=== PATIENT | female | born 1980 | race Caucasian/White ===

== ENCOUNTER 2017-01-24 09:11 | Inpatient (IN) | payer BC ==
--- NOTE | 2017-01-20 15:50 | PROGRESS NOTE:Antepartum ---
Assessment and Plan - Date of Encounter Date of Encounter: 01/24/17 11:40 AM (1) Supervision of elderly multigravida in third trimester (>=35 years old at time of delivery) Status: Acute Assessment and plan: Term at 39 1/7 with GBS + and lives 4 hours from hospital. Plan AROM induction since cervix is already 4 cm. Expect labor to follow and will add Pitocin prn. Current Visit: Yes (2) GBS (group B Streptococcus carrier), +RV culture, currently Status: Acute Assessment and plan: PCN Allergic, Clinda for prophylaxis, Clindamcyin started 11:45. Current Visit: Yes (3) Residence remote from hospital or health care facility Status: Acute Current Visit: Yes - Time Spent With Patient Total time spent with greater than 50% in coordination of care (as documented) at patient's floor/unit and/or counseling patient: INSURANCE COORDINATOR: Antepartum PN Subj - Subjective Interval history: 36-year-old with 3 previous spontaneous miscarriages all the first trimester and certain LMP of April 25, 2016 and EDC of January 30, 2017. Dates are confirmed by an early first trimester ultrasound as well as 20 week ultrasound. She is 39 1/7 weeks. She is group B strep positive. This was complicated by recurrent spontaneous miscarriages. She went to see the infertility specialists. They put her on thyroid hormone even with a normal TSH and she has carried her well. 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 Her Romeo decided he did not want to be tested for this. Past medical history: recurring spontaneous miscarriages, normal TSH but started on Synthroid, HSV 2, seasonal allergies. Past surgical history: tonsillectomy. 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 Family history: Her mother is healthy, father has hypertension and prostate cancer, maternal grandmother has asthma. labs: O+, antibody screen negative, rubella immune, RPR was nonreactive , H&H were 16 and 48 first trimester and 14.5 and 43 at 28 weeks. HIV nonreactive, hep B negative, one-hour glucose tolerance test was 110, her initial urine culture was negative, at 36 weeks she had a positive GBS but we did not get sensitivities. At 37 weeks every repeated hoping to get sensitivities but she was GBS negative at that time. She received a flu vaccine 99 of 16, her Adacel vaccine was 27 and 16. TSHs done during have all been normal. Patient reports: appetite normal, voiding normally, pain well controlled (no pain) Antepartum ROS: movement normal, no vaginal bleeding, no contractions, no loss of fluid, no headache INSURANCE COORDINATOR: Antepartum PN Obj Exam - Exam Heart Monitor: category I Lungs: Bilateral: normal Heart Rhythm: Present: regular Heart sounds: Absent: Murrmur Extremities: Absent: edema Cervical Dilatation Degree: 4 Cervical Effacement Percentage: 70 Station: -2
[2017-01-24] MEDS ORDERED: LACTATED RINGERS 1,000 ML IV ONE (09:49)
[2017-01-24] MEDS ORDERED: LIDOCAINE HCL/PF 1% 30 ML VIAL SUBCUT PRN (10:44)
[2017-01-24] MEDS ORDERED: HOME MEDICATION LIST NEEDED 1 EA EACH MC ONE ×2 (10:44→23:28)
[2017-01-24] MEDS ORDERED: MISOPROSTOL 200 MCG TABLET PO PRN (10:44)
[2017-01-24] MEDS ORDERED: ONDANSETRON HCL 4 MG/2 ML VIAL IV PRN ×2 (10:44→23:28)
[2017-01-24] MEDS ORDERED: FENTANYL 100 MCG/2 ML VIAL IV ONE ×2 (10:44→23:28)
[2017-01-24] MEDS ORDERED: OXYTOCIN/NORMAL SALINE 30 UNIT/500 ML BAG IV SCH (10:44)
[2017-01-24] MEDS ORDERED: CLINDAMYCIN/D5W 50 ML IV ONE (11:35)
[2017-01-24 11:40] LABS: EOSINOPHILS 0.5 % (0.0-6.0); EOSINOPHILS# 0.1 X 10^3uL (0.0-0.4); HEMATOCRIT 44.3 % (36.0-48.0); HEMOGLOBIN 15.3 g/dL (12.0-16.0); LYMPHOCYTES 9.3 % (20.0-40.0); MEAN CELL VOLUME 95.1 fL (80.0-100.0); MEAN CORPUS. HGB CONCENTRATION 34.6 g/dL (32.0-36.0); MEAN CORPUSCULAR HEMOGLOBIN 32.9 pg (29.0-35.0); MEAN PLATELET VOLUME 9.9 fL (7.4-10.4); MONOCYTES 7.1 % (2.0-10.0); MONOCYTES# 0.8 X 10^3uL (0.2-1.0); NEUTROPHILS 83.1 % (54.0-75.0); PLATELET COUNT 185 X 10^3uL (130-440); RED BLOOD COUNT 4.66 X 10^6uL (4.20-6.10); RED CELL DISTRIBUTION WIDTH 11.7 % (11.5-14.5); WHITE BLOOD COUNT 10.9 X 10^3uL (3.9-10.7)
[2017-01-24 12:16] LABS: ABO GROUP TYPE O
[2017-01-24 12:17] LABS: ANTIBODY SCREEN NEGATIVE; RH TYPE POSITIVE
--- NOTE | 2017-01-24 17:15 | PROGRESS NOTE:Antepartum ---
Assessment and Plan - Date of Encounter Date of Encounter: 01/24/17 (1) Supervision of elderly multigravida in third trimester (>=35 years old at time of delivery) Status: Acute Assessment and plan: Term at 39 1/7 with GBS + and lives 4 hours from hospital. Plan AROM induction since cervix is already 4 cm. Patient now just under 6 hours out from AROM with CTX q 1-3. now 5 cm and decended to 0 station as well as anterior mobilization of cervix. Good progress. Has Met GBS prophlyaxis requirment. Discussed pain mgmt options both medical and natural but she is coping well. Current Visit: Yes (2) GBS (group B Streptococcus carrier), +RV culture, currently Status: Acute Assessment and plan: PCN Allergic, Clinda for prophylaxis, Clindamcyin started 11:45. Current Visit: Yes (3) Residence remote from hospital or health care facility Status: Acute Current Visit: Yes - Time Spent With Patient Total time spent with greater than 50% in coordination of care (as documented) at patient's floor/unit and/or counseling patient: BUSINESS INTELLIGENCE ARCHITECT: Antepartum PN Subj - Subjective Patient reports: voiding normally, pain well controlled (Breathing, declines pain meds) Antepartum ROS: contractions (q 1-3), loss of fluid (clear), movement normal, no vaginal bleeding, no headache BUSINESS INTELLIGENCE ARCHITECT: Antepartum PN Obj Exam - Latest Vital Signs and I&O Latest Vital Signs/I&O: Vital Signs Temp 36.9 C 01/24/17 15:30 Pulse 84 01/24/17 13:30 Resp 20 01/24/17 13:30 BP 119/73 01/24/17 13:30 Pulse Ox 97 01/24/17 13:30 Intake & Output 01/23/17 01/24/17 01/24/17 17:59 05:59 17:59 Intake Total 1000 Balance 1000 Weight 78.018 kg Intake: IV 1000 Right Forearm 1000 Other: Urine Appearance Clear Urine Color Yellow Voiding Method Toilet # Voids 1 01/24/17 17:11 - Exam Heart Monitor: category I Lungs: Bilateral: normal Heart Rhythm: Present: regular Heart sounds: Absent: Murrmur Extremities: Absent: edema Cervical Dilatation Degree: 5 Cervical Effacement Percentage: 80 Station: 0 - Lab Labs: Laboratory Last Values WBC 10.9 X 10^3uL (3.9-10.7) H 01/24/17 10:00 RBC 4.66 X 10^6uL (4.20-6.10) 01/24/17 10:00 Hgb 15.3 g/dL (12.0-16.0) 01/24/17 10:00 Hct 44.3 % (36.0-48.0) 01/24/17 10:00 MCV 95.1 fL (80.0-100.0) 01/24/17 10:00 MCH 32.9 pg (29.0-35.0) 01/24/17 10:00 MCHC 34.6 g/dL (32.0-36.0) 01/24/17 10:00 RDW 11.7 % (11.5-14.5) 01/24/17 10:00 Plt Count 185 X 10^3uL (130-440) 01/24/17 10:00 MPV 9.9 fL (7.4-10.4) 01/24/17 10:00 Neutrophils % 83.1 % (54.0-75.0) H 01/24/17 10:00 Lymphocytes % 9.3 % (20.0-40.0) L 01/24/17 10:00 Eosinophils % 0.5 % (0.0-6.0) 01/24/17 10:00 Basophils % 0.0 % (0.0-2.0) 01/24/17 10:00 Neutrophils # 9.0 X 10^3uL (2.6-6.7) H 01/24/17 10:00 Lymphocytes # 1.0 X 10^3uL (0.8-3.8) 01/24/17 10:00 Monocytes 7.1 % (2.0-10.0) 01/24/17 10:00 Monocytes # 0.8 X 10^3uL (0.2-1.0) 01/24/17 10:00 Eosinophils # 0.1 X 10^3uL (0.0-0.4) 01/24/17 10:00 Basophils # 0.0 X 10^3uL (0.0-0.1) 01/24/17 10:00 ABO Group Type o 01/24/17 10:00 Rh Factor Positive 01/24/17 10:00 Antibody Screen Negative 01/24/17 10:00
--- NOTE | 2017-01-24 19:32 | PROGRESS NOTE:Antepartum ---
Assessment and Plan - Date of Encounter Date of Encounter: 01/24/17 (1) Supervision of elderly multigravida in third trimester (>=35 years old at time of delivery) Status: Acute Assessment and plan: Term at 39 1/7 with GBS + and lives 4 hours from hospital. Plan AROM induction since cervix is already 4 cm. Patient now just under 6 hours out from AROM with CTX q 1-3. now 5 cm and decended to 0 station as well as anterior mobilization of cervix. Good progress. Has Met GBS prophlyaxis requirment. Discussed pain mgmt options both medical and natural but she is coping well. This SVE I felt breech. Now 7 cm. Plan for LTCS of healthy infant. Current Visit: Yes (2) GBS (group B Streptococcus carrier), +RV culture, currently Status: Acute Current Visit: Yes (3) Residence remote from hospital or health care facility Status: Acute Current Visit: Yes - Time Spent With Patient Total time spent with greater than 50% in coordination of care (as documented) at patient's floor/unit and/or counseling patient: JANITOR CUSTODIAN: Antepartum PN Subj - Subjective Patient reports: voiding normally, pain well controlled (Breathing, declines pain meds) Antepartum ROS: contractions (q 1-3), loss of fluid (clear), movement normal, no vaginal bleeding, no headache JANITOR CUSTODIAN: Antepartum PN Obj Exam - Latest Vital Signs and I&O Latest Vital Signs/I&O: Vital Signs Temp 36.6 C 01/24/17 17:30 Pulse 82 01/24/17 16:30 Resp 16 01/24/17 16:30 BP 96/59 01/24/17 16:30 Pulse Ox 95 01/24/17 16:30 Intake & Output 01/24/17 01/24/17 01/25/17 05:59 17:59 05:59 Intake Total 1000 Balance 1000 Weight 78.018 kg Intake: IV 1000 Right Forearm 1000 Other: Urine Appearance Clear Urine Color Yellow Voiding Method Toilet # Voids 1 - Exam Heart Monitor: category I Lungs: Bilateral: normal Heart Rhythm: Present: regular Heart sounds: Absent: Murrmur Extremities: Absent: edema Cervical Dilatation Degree: 7 Cervical Effacement Percentage: 100 Station: 0 (Breech) - Lab Labs: Laboratory Last Values WBC 10.9 X 10^3uL (3.9-10.7) H 01/24/17 10:00 RBC 4.66 X 10^6uL (4.20-6.10) 01/24/17 10:00 Hgb 15.3 g/dL (12.0-16.0) 01/24/17 10:00 Hct 44.3 % (36.0-48.0) 01/24/17 10:00 MCV 95.1 fL (80.0-100.0) 01/24/17 10:00 MCH 32.9 pg (29.0-35.0) 01/24/17 10:00 MCHC 34.6 g/dL (32.0-36.0) 01/24/17 10:00 RDW 11.7 % (11.5-14.5) 01/24/17 10:00 Plt Count 185 X 10^3uL (130-440) 01/24/17 10:00 MPV 9.9 fL (7.4-10.4) 01/24/17 10:00 Neutrophils % 83.1 % (54.0-75.0) H 01/24/17 10:00 Lymphocytes % 9.3 % (20.0-40.0) L 01/24/17 10:00 Eosinophils % 0.5 % (0.0-6.0) 01/24/17 10:00 Basophils % 0.0 % (0.0-2.0) 01/24/17 10:00 Neutrophils # 9.0 X 10^3uL (2.6-6.7) H 01/24/17 10:00 Lymphocytes # 1.0 X 10^3uL (0.8-3.8) 01/24/17 10:00 Monocytes 7.1 % (2.0-10.0) 01/24/17 10:00 Monocytes # 0.8 X 10^3uL (0.2-1.0) 01/24/17 10:00 Eosinophils # 0.1 X 10^3uL (0.0-0.4) 01/24/17 10:00 Basophils # 0.0 X 10^3uL (0.0-0.1) 01/24/17 10:00 ABO Group Type o 01/24/17 10:00 Rh Factor Positive 01/24/17 10:00 Antibody Screen Negative 01/24/17 10:00
[2017-01-24] MEDS ORDERED: FAMOTIDINE IN SALINE, ISO-OSM 50 ML IV ONE (19:40)
[2017-01-24] MEDS ORDERED: FENTANYL 100 MCG/2 ML VIAL ONE (19:58)
[2017-01-24] MEDS ORDERED: OXYTOCIN 10 UNITS/ML VIAL ONE (19:58)
[2017-01-24] MEDS ORDERED: MORPHINE SULFATE/PF 10 MG/10 ML VIAL ONE (19:59)
[2017-01-24] MEDS ORDERED: NORMAL SALINE 10 ML VIAL ONE (20:00)
[2017-01-24] MEDS ORDERED: ceFAZolin 1 GM/10 ML VIAL ONE (20:19)
[2017-01-24] MEDS ORDERED: NALBUPHINE HCL 10 MG/ML AMP IV PRN ×2 (20:45→23:28)
[2017-01-24] MEDS ORDERED: DIPHENHYDRAMINE 25 MG CAPSULE PO PRN ×2 (20:45→23:28)
[2017-01-24] MEDS ORDERED: NALOXONE HCL 0.4 MG/ML VIAL IV PRN ×6 (20:45→23:28)
[2017-01-24] MEDS ORDERED: DIPHENHYDRAMINE 50 MG/ML VIAL IV PRN ×2 (20:45→23:28)
[2017-01-24] MEDS ORDERED: EPHEDrine SULFATE 50 MG/ML VIAL ONE (20:46)
[2017-01-24] MEDS ORDERED: PHENYLEPHRINE HCL 10,000 MCG/ML VIAL ONE (20:46)
[2017-01-24] MEDS ORDERED: ONDANSETRON HCL 4 MG/2 ML VIAL ONE (20:46)
[2017-01-24] MEDS ORDERED: KETOROLAC TROMETHAMINE 30 MG/ML VIAL ONE (20:59)
--- NOTE | 2017-01-24 22:06 | OPERATIVE NOTE: C-Section ---
- Operative Report Date of procedure: 01/24/17 Pre-Op Diagnosis: Breech Post-op diagnosis: same Procedure: LTCS Anesthesia Type: Spinal Estimated Blood Loss: 700 Pathology: none sent Sponge and instrument counts: correct X-ray taken: No Estimated Gestational Age (weeks): 39 Delivery Presentation: breech Heart Monitor: category I Intrapartum Events: none (Did not discover breech until 7 cm) Amniotic Fluid: clear Cord Vessel Description: 3 Vessels Cord clamped: Yes Cord blood obtained: Yes at 1 minute: 6 at 5 minutes: 9 Infant Gender: Male Weight: 3.506 kg Delivery Complications: Present: none Narrative: 36-year-old at 39 1/7 weeks presented for an AROM induction. I had previously thought she was vertex. On her first cervical exam she felt vertex but I suspect I was feeling the baby's sacrum. She was 4 cm with a bulging bag of fluid. I performed an artificial rupture of membranes revealing clear fluids. She had a slow onset of labor. When I checked her at 7 cm I could fill a breech presentation. This was confirmed with ultrasound. I therefore consented her for a low transverse section. She was GBS positive and had already received her first dose of Clindamycin. She did get a dose of Ancef prior to the being born. She was taken to the OR where a spinal anesthetic was placed. She was placed in a recumbent position with a roll under her left hip. FHT's were 140's. A Reyes catheter was placed. The time out was taken. She was prepped and draped in a sterile fashion. The skin was tested for adequate anesthesia and the Pfannenstiel skin incision was made. I took this down to the fascia with a combination of blunt and cautery technique. The fascia was exposed and cut in the midline and taken to the apices in a curvilinear fashion. The fascia was reflected off the abdomen wall in first a superior then inferior fashion. The rectus muscle were entered sharply along the diathesis and using pulling technique extended in superior and inferior directions. The peritoneum was entered sharply with Metzenbaum scissors and extended using a pulling technique. The Jose Manuel O-ring was introduced as a retractor. The uterus was in a midline position. a bladder flap was created and pushed inferiorly. The low transverse uterine incision was then made with several low passes. the amnion was entered and clear fluid was still present. the infant was in breech position. His buttocks were lifted from the abdomen and each leg delivered. the arms were then swept down and delivered w/o any significant traction. The infant's body was supported and then his shoulders and head delivered without difficulty or traction. He was bulb suctioned. The cord was clamped twice and cut by me and I handed the infant to Dr. King who attended the delivery. The uterus was manually massaged and the placenta delivered intact. A 3VC had been noted. The uterine incision was clamped with Jones's for temporary hemostasis and the an O Chromic suture in a running locking fashion was made for the first layer. A second layer was closed with O-Chromic in an imbricating fashion. Two figure 8's were used to achieve hemostasis, one in the midline and the other on the left apex. The wound was irrigated and uterine incision was dry. The Theresa O-ring was removed and the peritoneum was closed with 4.0 Vicryl in a running fashion. The rectus muscles were approximated with 5 separate 0 chromic sutures. The fascia was closed with a running non-locking 0-PDS suture. The wound was irrigated again with warm saline. 4 simple 4-0 Vicryl sutures were used to approximate the subcutaneous tissue and the skin was closed with a running 4-0 Monocryl subcuticular suture. The skin was painted with benzoin and steri-strips were placed to reinforce the wound. The fundus was massaged and firm. All counts were correct. She was taken to PACU for recovery. Condition: stable Disposition: PACU
[2017-01-24] MEDS ORDERED: MAGNESIUM HYDROXIDE 30 ML UDC PO PRN (23:28)
[2017-01-24] MEDS ORDERED: MEPERIDINE HCL/PF 50 MG/ML SYR IV PRN (23:28)
[2017-01-24] MEDS ORDERED: SIMETHICONE CHEW 80 MG TABLET PO PRN (23:28)
[2017-01-24] MEDS ORDERED: LANOLIN CREAM 1 APP/7 GM TUBE TOPICAL PRN (23:28)
[2017-01-24] MEDS: DEXTROSE 5% IV SCH (23:32)
[2017-01-24] MEDS: D5W IV SCH (23:32)
[2017-01-24] MEDS: CLINDAMYCIN IV SCH (23:32)
[2017-01-25] MEDS: LACTATED RINGERS 1,000 ML IV SCH ×2 (00:06→09:00)
[2017-01-25] MEDS ORDERED: HOME MEDICATION LIST NEEDED 1 EA EACH MISC ONE (01:00)
[2017-01-25] MEDS: KETOROLAC TROMETHAMINE 30 MG/ML VIAL IV PRN ×3 (02:23→17:06)
[2017-01-25] MEDS ORDERED: D5W IV SCH (02:44)
[2017-01-25] MEDS ORDERED: DEXTROSE 5% IV SCH (02:44)
[2017-01-25] MEDS ORDERED: CLINDAMYCIN IV SCH (02:44)
[2017-01-25 06:18] LABS: BASOPHIL# 0.1 X 10^3uL (0.0-0.1); BASOPHILS 0.4 % (0.0-2.0); HEMOGLOBIN 12.9 g/dL (12.0-16.0); LYMPHOCYTES 6.8 % (20.0-40.0); LYMPHOCYTES# 1.1 X 10^3uL (0.8-3.8); MEAN CELL VOLUME 94.1 fL (80.0-100.0); MEAN CORPUS. HGB CONCENTRATION 34.8 g/dL (32.0-36.0); MEAN CORPUSCULAR HEMOGLOBIN 32.7 pg (29.0-35.0); MEAN PLATELET VOLUME 9.4 fL (7.4-10.4); MONOCYTES 7.1 % (2.0-10.0); MONOCYTES# 1.2 X 10^3uL (0.2-1.0); NEUTROPHILS# 14.2 X 10^3uL (2.6-6.7); RED BLOOD COUNT 3.94 X 10^6uL (4.20-6.10); RED CELL DISTRIBUTION WIDTH 11.8 % (11.5-14.5)
[2017-01-25 07:13] LABS: NEUTROPHILS 85.7 % (54.0-75.0); WHITE BLOOD COUNT 16.6 X 10^3uL (3.9-10.7)
--- NOTE | 2017-01-25 10:23 | PROGRESS NOTE:C-section ---
Assessment and Plan - Date of Encounter Date of Encounter: 01/25/17 (1) delivery indicated due to breech presentation Status: Acute Assessment and plan: Term at 39 1/7 with GBS + and lives 4 hours from hospital. Plan AROM induction since cervix is already 4 cm. Met GBS prophylaxis requirement. SVE at 7 cm was breech. Performed for LTCS of healthy . Apgars 6,9, Weight 7# 11 oz. PP mom doing well. Today will ambulate this afternoon and advance dies. Remove Reyes when ambulating well. Current Visit: Yes (2) Supervision of elderly multigravida in third trimester (>=35 years old at time of delivery) Status: Acute Assessment and plan: Term at 39 1/7 with GBS + and lives 4 hours from hospital. Plan AROM induction since cervix is already 4 cm. Met GBS prophylaxis requirement. SVE at 7 cm was breech. Performed for LTCS of healthy infant. Apgars 6,9, Weight 7 # 11 oz. PP mom doing well. Today will ambulate this afternoon and advance dies. Remove Reyes when ambulating well. Current Visit: Yes (3) GBS (group B Streptococcus carrier), +RV culture, currently Status: Acute Current Visit: Yes (4) Residence remote from hospital or health care facility Status: Acute Current Visit: Yes - Time Spent With Patient Total time spent with greater than 50% in coordination of care (as documented) at patient's floor/unit and/or counseling patient: LINE O SCRIBE OPERATOR: C-Sec PN Subjective Interval History: 36 now 1 discovered to be breech in Labor underwent LTCS at 8:30 pm 01/24. Doing well, pain controlled, BF well. Post-op Day: 1 Patient reports: appetite normal, pain well controlled, no nausea [place]: doing well, nursing well LINE O SCRIBE OPERATOR: C-Sec PN Obj Exam - Latest Vital Signs and I&O Latest Vital Signs/I&O: Vital Signs Temp 36.2 C L 01/25/17 02:00 Pulse 85 01/25/17 04:28 Resp 16 01/25/17 06:00 BP 90/48 01/25/17 06:00 Pulse Ox 91 01/25/17 04:28 Intake & Output 01/24/17 01/25/17 01/25/17 17:59 05:59 17:59 Intake Total 1000 2462 Output Total 575 Balance 1000 1887 Weight 78.018 kg Intake: IV 1000 2222 Right Forearm 1000 2222 Oral 240 Output: Urine 425 Emesis 150 Other: Urine Appearance Clear Clear Urine Color Yellow Straw Uretheral (Reyes) Yellow Straw Voiding Method Toilet Indwelling Catheter # Voids 1 01/25/17 10:19 - Exam Lungs: Bilateral: normal Heart Rhythm: Present: regular Heart sounds: Absent: Murrmur Extremities: Absent: edema (SCD's on) Bowel sounds: present Incision: Present: dressed Uterus: Present: firm, non tender - Lab Labs: Laboratory Last Values WBC 16.6 X 10^3uL (3.9-10.7) H 01/25/17 06:05 RBC 3.94 X 10^6uL (4.20-6.10) L 01/25/17 06:05 Hgb 12.9 g/dL (12.0-16.0) 01/25/17 06:05 Hct 37.0 % (36.0-48.0) 01/25/17 06:05 MCV 94.1 fL (80.0-100.0) 01/25/17 06:05 MCH 32.7 pg (29.0-35.0) 01/25/17 06:05 MCHC 34.8 g/dL (32.0-36.0) 01/25/17 06:05 RDW 11.8 % (11.5-14.5) 01/25/17 06:05 Plt Count 181 X 10^3uL (130-440) 01/25/17 06:05 MPV 9.4 fL (7.4-10.4) 01/25/17 06:05 Neutrophils % 85.7 % (54.0-75.0) H 01/25/17 06:05 Lymphocytes % 6.8 % (20.0-40.0) L 01/25/17 06:05 Eosinophils % 0.0 % (0.0-6.0) 01/25/17 06:05 Basophils % 0.4 % (0.0-2.0) 01/25/17 06:05 Neutrophils # 14.2 X 10^3uL (2.6-6.7) H 01/25/17 06:05 Lymphocytes # 1.1 X 10^3uL (0.8-3.8) 01/25/17 06:05 Monocytes 7.1 % (2.0-10.0) 01/25/17 06:05 Monocytes # 1.2 X 10^3uL (0.2-1.0) H 01/25/17 06:05 Eosinophils # 0.0 X 10^3uL (0.0-0.4) 01/25/17 06:05 Basophils # 0.1 X 10^3uL (0.0-0.1) 01/25/17 06:05 ABO Group Type o 01/24/17 10:00 Rh Factor Positive 01/24/17 10:00 Antibody Screen Negative 01/24/17 10:00
[2017-01-25] MEDS: DOCUSATE SODIUM 100 MG CAPSULE PO SCH ×2 (11:02→22:26)
[2017-01-25] MEDS: VALACYCLOVIR 500 MG TABLET PO SCH (17:33)
[2017-01-25] MEDS: PRENATAL VIT/FE FUMARATE/FA 1 TAB TABLET PO SCH (17:35)
[2017-01-25] MEDS: IBUPROFEN 600 MG TABLET PO PRN (23:34)
[2017-01-26] MEDS: LEVOTHYROXINE 100 MCG TABLET PO SCH ×2 (01:42→06:21)
[2017-01-26] MEDS: IBUPROFEN 600 MG TABLET PO PRN ×3 (06:21→18:17)
[2017-01-26 08:34] VITALS: RESP 18
[2017-01-26] MEDS: DOCUSATE SODIUM 100 MG CAPSULE PO SCH ×2 (09:32→20:36)
[2017-01-26] MEDS: VALACYCLOVIR 500 MG TABLET PO SCH (09:32)
[2017-01-26] MEDS: PRENATAL VIT/FE FUMARATE/FA 1 TAB TABLET PO SCH (09:32)
--- NOTE | 2017-01-26 09:54 | PROGRESS NOTE:C-section ---
Assessment and Plan - Date of Encounter Date of Encounter: 01/26/17 (1) care following delivery Problem details: S/P LTC/S for breech Status: Acute Assessment and plan: Stable, increase ambulation today, continue to work on . Current Visit: Yes - Time Spent With Patient Total time spent with greater than 50% in coordination of care (as documented) at patient's floor/unit and/or counseling patient: TOBACCO FEEDER CATCHER: C-Sec PN Subjective Interval History: Still tired and sore, feels like baby's latch is improved some this morning. Patient reports: appetite normal, voiding normally, pain well controlled, flatus , no nausea : doing well, nursing well TOBACCO FEEDER CATCHER: C-Sec PN Obj Exam - Latest Vital Signs and I&O Latest Vital Signs/I&O: Vital Signs Temp 36.2 C L 01/26/17 08:00 Pulse 80 01/26/17 08:00 Resp 18 01/26/17 08:00 BP 90/50 01/26/17 08:00 Pulse Ox 96 01/26/17 08:00 Intake & Output 01/25/17 01/26/17 01/26/17 17:59 05:59 17:59 Intake Total 2000 Output Total 3650 1450 Balance -1650 -1450 Intake: IV 1000 Right Forearm 1000 Oral 1000 Output: Urine 3650 1450 Uretheral (Reyes) 1000 Other: Urine Appearance Clear Clear Urine Color Yellow Uretheral (Reyes) Light Maryjane Voiding Method Indwelling Catheter Toilet Toilet # Voids 1 - Exam Lungs: Bilateral: normal Heart Rhythm: Present: regular Extremities: Absent: tenderness Abdomen: Present: soft. Absent: distention Bowel sounds: present Incision: Present: well approximated, sutures intact. Absent: erythematous Uterus: Present: firm, mildly tender - Lab Labs: Laboratory Last Values WBC 16.6 X 10^3uL (3.9-10.7) H 01/25/17 06:05 RBC 3.94 X 10^6uL (4.20-6.10) L 01/25/17 06:05 Hgb 12.9 g/dL (12.0-16.0) 01/25/17 06:05 Hct 37.0 % (36.0-48.0) 01/25/17 06:05 MCV 94.1 fL (80.0-100.0) 01/25/17 06:05 MCH 32.7 pg (29.0-35.0) 01/25/17 06:05 MCHC 34.8 g/dL (32.0-36.0) 01/25/17 06:05 RDW 11.8 % (11.5-14.5) 01/25/17 06:05 Plt Count 181 X 10^3uL (130-440) 01/25/17 06:05 MPV 9.4 fL (7.4-10.4) 01/25/17 06:05 Neutrophils % 85.7 % (54.0-75.0) H 01/25/17 06:05 Lymphocytes % 6.8 % (20.0-40.0) L 01/25/17 06:05 Eosinophils % 0.0 % (0.0-6.0) 01/25/17 06:05 Basophils % 0.4 % (0.0-2.0) 01/25/17 06:05 Neutrophils # 14.2 X 10^3uL (2.6-6.7) H 01/25/17 06:05 Lymphocytes # 1.1 X 10^3uL (0.8-3.8) 01/25/17 06:05 Monocytes 7.1 % (2.0-10.0) 01/25/17 06:05 Monocytes # 1.2 X 10^3uL (0.2-1.0) H 01/25/17 06:05 Eosinophils # 0.0 X 10^3uL (0.0-0.4) 01/25/17 06:05 Basophils # 0.1 X 10^3uL (0.0-0.1) 01/25/17 06:05 ABO Group Type o 01/24/17 10:00 Rh Factor Positive 01/24/17 10:00 Antibody Screen Negative 01/24/17 10:00
[2017-01-27] MEDS: IBUPROFEN 600 MG TABLET PO PRN ×2 (00:34→07:36)
[2017-01-27] MEDS: LEVOTHYROXINE 100 MCG TABLET PO SCH (07:37)
[2017-01-27 07:43] VITALS: BP 110/83; PULSE 90; O2SAT 90
--- NOTE | 2017-01-27 07:58 | DC SUMMARY: Obstetrical/GYN ---
Discharge Summary: Surg/OB Provider: Date of Admission: 01/24/17 Admitting Provider: HORACE GAMBOA MD Attending Provider: HORACE GAMBOA MD Discharging Provider: JOSE STANLEY MD Primary Care Provider: Discharge Date: 01/27/17 - Diagnosis (1) care following delivery Status: Acute Hospital Course: Ms. BENOIT is a 36 year old female admitted for amniotomy induction of labor at term with a favorable cervix. Patient felt to be vertex on examination. Amniotomy revealed clear fluid. As she progressed noted to be breech and underwent primary low transverse section. Operation without complication and post-operatively she did well with good return of bowel and bladder function. She is discharged to home on the third day in good condition. Discharge - Patient/Caregiver Discharge Instructions Activity Level: Pelvic and abdominal rest Diet: Regular Additional Instructions: Discharge Instructions for Dr. Gamboa 1. Please make a follow up appointment to see me. 2. Contact me in [place] at [phone] or Leatha Wilson [phone]. 3. You should use Ibuprofen 600 mg, three times a day for pain. If that is inadequate you may be given a narcotic prescription. Narcotics are very constipating and you should use fiber or Colace to prevent constipation if taking them regularly. You should not drive a car while taking narcotics. 4. Take your vitamins as long as you breast feed or for 6 weeks after delivery. 5. If you are not , wear a jog bra or tight bra for 2 weeks to prevent milk production. Wear this both night and day. If you are having pain , use ice packs and try not to stimulate your nipples. You may also use Ibuprofen and Tylenol. 6. If you are having troubles with breast feeding including pain or sore nipples please call me. Always remind physicians that you are breast feeding if you receive a new medication prescription. 7. To help prevent complications with : a. Ensure good position and latch b. Ensure feeding on demand c. Empty breasts fully d. Use hand expression to help relieve fullness e. Expose breast engorgement to warm water by shower or basin f. Call if unrelieved or if you have questions Leatha Wilson : Eun Darden, ___[phone] Stefano Pagan, __[phone]___ 8. Bleeding is normal for 2-6 weeks after delivery. It may be heavier when you exercise or do more activity. If it seems heavy or you are passing clots please call me. 9. Use Pads only for bleeding. Do not use Tampons. 10. If I request you take iron to help build your blood counts back up you can get this over the counter. The most common form is Iron Sulfate 325 mg. Take one daily. It is best taken on an empty stomach with orange juice. 11. Do not have intercourse until 4-6 weeks after you delivery or until you quit bleeding. 12. You may shower or take sitz baths in 3 inches of warm water but do not soak in hot tubs or take deep baths until you quit bleeding (about 4-6 weeks). 13. If you had a , do not lift anything heavier than your baby for 2 weeks, and do not drive for 2 weeks. You may shower. You do not need to wear a bandage. A small amount of drainage from the incision is normal but if it seems excessive or the wound is red or painful please call me immediately. 14. Please dont hesitate to call with any questions. Follow up: HORACE GAMBOA MD [ACTIVE (Staff Physician)] - 01/28/17 Overall discharge status: stable Print Language: [place] Home Medications: Ibuprofen [Motrin] 2 - 3 tab PO Q4H PRN #30 tablet PRN Reason: pain oxyCODONE HCL IR [Oxy Ir*] 5 mg PO Q4H PRN #30 tablet PRN Reason: Pain, Severe Able To Take Po Care Plan Goals: able to care for self and baby Disposition: HOME, SELF-CARE Obstetrical/BUTCHER [facility]ULLION Discharge Exam - Latest Vital Signs and I&O Latest Vital Signs/I&O: Vital Signs Temp 36.5 C 01/27/17 07:42 Pulse 90 01/27/17 07:42 Resp 18 01/27/17 07:42 BP 110/83 01/27/17 07:42 Pulse Ox 90 01/27/17 07:42 Intake & Output 01/26/17 01/27/17 01/27/17 17:59 05:59 17:59 Other: Urine Appearance Clear Urine Color Yellow Voiding Method Toilet Toilet - Exam Lungs: Bilateral: normal Heart Rhythm: Present: regular Extremities: Absent: tenderness Abdomen: Present: soft. Absent: distention Bowel sounds: present Incision: Present: well approximated, sutures intact. Absent: erythematous Uterus: Present: firm, non tender Discharge Summary Data - Medication History Medication History: Home Medications Levothyroxine [Synthroid*] 100 mcg PO BEFORE BREAKFAST 01/24/17 Vit/Fe Fumarate/FA [ Rx 1] 1 tab PO DAILY 01/24/17 Valacyclovir [Valtrex*] 500 mg PO DAILY 01/24/17 Inpatient Medications 01/24/17 23:28 Lanolin Cream [Lansinoh] 1 rafael TOPICAL PRN PRN Magnesium Hydroxide [Milk of Magnesia] 30 ml PO PRN PRN Simethicone Chew [Mylicon] 80 mg PO Q6H PRN 01/25/17 09:00 Docusate Sodium [Colace] 100 mg PO BID 01/25/17 13:00 Levothyroxine [Synthroid] 100 mcg PO 0630 Vit/Fe Fumarate/FA [ Rx 1] 1 tab PO DAILY Valacyclovir [Valtrex] 500 mg PO DAILY 01/25/17 17:08 oxyCODONE HCL IR [Oxy Ir] 5 mg PO Q3H PRN 01/25/17 20:08 Ibuprofen [Motrin] 600 mg PO Q6H PRN Procedures and tests throughout hospitalization: Completed Lab Orders 01/24/17 10:00 ABO GROUP [HEM] Urgent ANTIBODY SCREEN [HEM] Routine CBC AUTO DIF, MDIF/RMOR IF IND [HEM] Urgent RH TYPE [HEM] Urgent 01/25/17 06:05 CBC AUTO DIF, MDIF/RMOR IF IND [HEM] AMDRAW Pending Orders 01/24/17 10:44 Admit: Inpatient Routine 01/24/17 20:45 Vital Signs Q4H 01/24/17 23:28 Incentive Spirometry Post Assessment PER PROTOCOL Lanolin Cream [Lansinoh] 1 rafael TOPICAL PRN PRN Magnesium Hydroxide [Milk of Magnesia] 30 ml PO PRN PRN Simethicone Chew [Mylicon] 80 mg PO Q6H PRN 01/24/17 Breakfast Regular [DIET] 01/25/17 09:00 Docusate Sodium [Colace] 100 mg PO BID 01/25/17 13:00 Levothyroxine [Synthroid] 100 mcg PO 0630 Vit/Fe Fumarate/FA [ Rx 1] 1 tab PO DAILY Valacyclovir [Valtrex] 500 mg PO DAILY 01/25/17 17:08 oxyCODONE HCL IR [Oxy Ir] 5 mg PO Q3H PRN 01/25/17 20:08 Ibuprofen [Motrin] 600 mg PO Q6H PRN 01/26/17 Dinner Special Meal (NLC)
[2017-01-27 14:14] VITALS: TEMP 97.9
== END 2017-01-27 11:00 | disposition home or self-care (01) | DRG 766 ==
LOC: NLCPRO 09:11 → NLC 09:12
PROVIDERS: ADMIT Family Medicine; ATTEND Family Medicine
PROC: 10D00Z1 Extraction of Products of Conception, Low, Open Approach (ICD-10-PCS; principal; 2017-01-24)
DX: O32.1XX0 Maternal care for breech presentation, not applicable or unspecified (principal); O99.824 Streptococcus B carrier state complicating childbirth; O09.523 Supervision of elderly multigravida, third trimester; Z3A.39 39 weeks gestation of pregnancy; Z37.0 Single live birth
CPT/HCPCS: 36415; 85025; 86850; 86900; 86901; C1781; J0690; J1200; J1885; J2370; J2405; J2590; J7120